=== PATIENT | female | born 1970 | race Hispanic/Latino ===

== ENCOUNTER 2017-01-30 08:06 | Outpatient (CLI) | payer BC ==
--- NOTE | 2017-01-30 16:09 | Mammography Report ---
BILATERAL DIGITAL DIAGNOSTIC MAMMOGRAM with CAD: 01/30/17 08:06:00 CLINICAL: History of a left palpable breast lump which has been followed. Status post left benign breast biopsy. COMPARISON:[facility] 08/12/15 and [facility] 04/01/13 mammograms FINDINGS: The breasts are mostly fatty with a few bilateral scattered fibroglandular densities. No mammographic finding at an upper outer palpable marker. Normal fat underlies the marker and the marker was also on the comparison 2016 mammogram. A left outer biopsy clip correlates with a previously identified circumscribed mass which is much smaller than on the [facility] 2013 mammogram.No new mass, architectural distortion or suspicious calcifications. IMPRESSION: No mammographic evidence of malignancy. BI-RADS CATEGORY: 2 - - Benign RECOMMENDATION: Routine mammographic screening in one year. ACR BI-RADS MAMMOGRAPHIC CODES: 0 = Needs additional imaging evaluation; 1 = Negative; 2 = Benign; 3 = Probably benign; 4 = Suspicious; 5 = Malignant; 6 = Known biopsy-proven malignancy COMMENT: 1. Dense breast tissue, i.e., adenosis, fibrocystic changes, etc., may obscure an underlying neoplasm. 2. Approximately 10% of cancers are not detected with mammography. 3. A negative mammography report should not delay biopsy if a clinically suspicious mass is present. COMMENT: Patient follow-up letters are generated by our [employer] application.
== END 2017-01-30 08:07 | disposition home or self-care (01) ==
LOC: SPVWC 08:06
PROVIDERS: ATTEND Family Medicine
DX: R92.8 Other abnormal and inconclusive findings on diagnostic imaging of breast (principal)
CPT/HCPCS: 77066; G0204

== ENCOUNTER 2017-08-29 08:46 | Outpatient (CLI) | payer BC ==
--- NOTE | 2017-08-29 14:38 | Cat Scan Report ---
CT CERVICAL SPINE WITHOUT CONTRAST:08/29/17 08:46:00 CLINICAL: Cervical radiculopathy. TECHNIQUE: Volumetric acquisition and 1.25-mm axial scan reconstructions without contrast. Sagittal and coronal reformats were performed. FINDINGS: Mild dextroscoliosis centered at C5-6. Normal vertebral body height, alignment and disk spaces. No fracture or subluxation. Normal soft tissues and airway. C2-3: Intact. C3-4: Intact. C4-5: Intact. C5-6: Intact disc. A small left foraminal osteophyte producing mild left neural foraminal narrowing. C6-7: Intact. C7-T1: Intact. IMPRESSION: Dextroscoliosis centered at C5-6 and mild C5-6 degenerative disc disease. A small left C5-6 osteophyte produces mild narrowing of the left neural foramen. The rest of exam is normal.
== END 2017-08-29 08:47 | disposition home or self-care (01) ==
LOC: SPVIMAG 08:46
PROVIDERS: ATTEND Physical Medicine & Rehabilitation
DX: M48.02 Spinal stenosis, cervical region (principal); M41.82 Other forms of scoliosis, cervical region; M50.322 Other cervical disc degeneration at C5-C6 level; M54.12 Radiculopathy, cervical region
CPT/HCPCS: 72125

== ENCOUNTER 2018-02-19 09:29 | Outpatient (CLI) | payer BC ==
--- NOTE | 2018-02-19 14:59 | Mammography Report ---
BILATERAL DIGITAL SCREENING MAMMOGRAM with CAD: 02/19/18 09:29:00 CLINICAL: Routine screening.History of a left benign biopsy. 01/30/17 COMPARISON:01/30/17 and 04/01/13 FINDINGS: There are scattered areas of fibroglandular density.Left outer biopsy clip with a stable partially circumscribed mass adjacent to the clip. No new mass, architectural distortion or suspicious calcifications. IMPRESSION: No mammographic evidence of malignancy. BI-RADS CATEGORY: 2 -- Benign RECOMMENDATION: Routine mammographic screening in one year. COMMENT: Patient follow-up letters are generated by our [employer] application.
== END 2018-02-19 09:30 | disposition home or self-care (01) ==
LOC: SPVWC 09:29
PROVIDERS: ATTEND Family Medicine
DX: Z12.31 Encounter for screening mammogram for malignant neoplasm of breast (principal); K21.9 Gastro-esophageal reflux disease without esophagitis; Z90.49 Acquired absence of other specified parts of digestive tract; Z90.710 Acquired absence of both cervix and uterus
CPT/HCPCS: 77067

== ENCOUNTER 2018-09-10 13:52 | Outpatient (CLI) | payer BC ==
--- NOTE | 2018-09-10 14:28 | XRay Report ---
XRAY LUMBAR SPINE THREE VIEWS: 09/10/18 13:52:00 CLINICAL: Radiculopathy. FINDINGS: Mild levoscoliosis at L4-5. Normal vertebral body height, alignment and disc spaces. Lower lumbar facet joint sclerosis. The pedicles are intact. No fracture. Normal soft tissues. IMPRESSION: Lumbar scoliosis and mild to moderate lower lumbar facet joint arthropathy.
== END 2018-09-10 13:53 | disposition home or self-care (01) ==
LOC: SPVIMAG 13:52
PROVIDERS: ATTEND Anesthesiology
DX: M41.86 Other forms of scoliosis, lumbar region (principal); K21.9 Gastro-esophageal reflux disease without esophagitis; Z90.710 Acquired absence of both cervix and uterus
CPT/HCPCS: 72100

== ENCOUNTER 2019-01-19 14:13 | Outpatient (CLI) | payer BC ==
[2019-01-19 14:32] LABS: Basophils % (Auto) 0.3 % (0.0-1.8); Eosinophils # (Auto) 0.2 K/mm3 (0.0-0.4); Eosinophils % (Auto) 1.4 % (0.0-4.3); Hematocrit 45.6 % (30.3-42.9); Hemoglobin 15.5 gm/dl (10.1-14.3); Lymphocytes # (Auto) 4.1 K/mm3 (1.2-5.4); Lymphocytes % (Auto) 38.7 % (13.4-35.0); Mean Corpuscular HGB Conc 34 % (30-34); Mean Corpuscular Volume 90 fl (79-97); Monocytes # (Auto) 0.7 K/mm3 (0.0-0.8); Monocytes % (Auto) 6.2 % (0.0-7.3); Platelet Count 254 K/mm3 (140-440); Red Blood Count 5.07 M/mm3 (3.65-5.03); Red Cell Distribution Width 12.9 % (13.2-15.2)
[2019-01-19 14:49] LABS: Bilirubin,Urine NEG (Negative); Blood,Urine SM (Negative); Color,Urine Straw (Yellow); Mucus,Urine FEW /HPF; Protein,Urine <15 mg/dL mg/dL (Negative); Urobilinogen,Urine < 2.0 mg/dL (<2.0)
[2019-01-19 15:19] LABS: Alanine Aminotransferase 28 units/L (7-56); Albumin 4.3 g/dL (3.9-5); BUN/Creatinine Ratio 20; Blood Urea Nitrogen 14 mg/dL (7-17); Calcium 10.3 mg/dL (8.4-10.2); Hemolysis Index 7
== END 2019-01-19 14:14 | disposition home or self-care (01) ==
LOC: LAB 14:13
PROVIDERS: ATTEND Family Medicine
DX: R53.83 Other fatigue (principal); R10.30 Lower abdominal pain, unspecified; R61 Generalized hyperhidrosis; K21.9 Gastro-esophageal reflux disease without esophagitis; Z90.710 Acquired absence of both cervix and uterus
CPT/HCPCS: 36415; 80053; 81001; 84443; 85025; 87086

== ENCOUNTER 2019-02-23 09:46 | Outpatient (CLI) | payer BC ==
--- NOTE | 2019-02-23 15:18 | Mammography Report ---
DIGITAL SCREENING MAMMOGRAM WITH CAD, 02/23/2019 INDICATION: Routine screening mammography. TECHNIQUE: Digital bilateral 2D mammography was obtained in the craniocaudal and mediolateral obliq ue projections. This examination was interpreted with the benefit of Computer-Aided Detection analysi s. COMPARISON: 02/19/2018 FINDINGS: Breast Density: There are scattered areas of fibroglandular density. There is no evidence of dominant mass, suspicious calcifications or architectural distortion in eithe r breast. A left outer biopsy clip. IMPRESSION: No mammographic evidence of malignancy. Follow up recommendation: Routine yearly BI-RADS Category 1: Negative. A "normal" or negative report should not discourage follow up or biopsy of a clinically significant f inding. A written summary of these findings will be mailed to the patient. The patient will be entered into a mammography reporting system which will generate a reminder letter for the patient's next appointmen t at the appropriate interval. The [employer] recommends yearly mammograms starting at age 40 and continuing as l radha as a woman is in good health. Breast MRI is recommended for women with an approximate 20-25% or greater lifetime risk of breast cancer, including women with a strong family history of breast or ova charli cancer or who have been treated for Hodgkin's disease. Signer Name: Naman Dumont MD Signed: 02/23/2019 3:14 PM Workstation Name: [id number]
== END 2019-02-23 09:47 | disposition home or self-care (01) ==
LOC: SPVWC 09:46
PROVIDERS: ATTEND Family Medicine
DX: Z12.31 Encounter for screening mammogram for malignant neoplasm of breast (principal)
CPT/HCPCS: 77067

== ENCOUNTER 2019-03-24 11:35 | Outpatient (CLI) | payer BC ==
[2019-03-24 12:01] LABS: Hematocrit 43.6 % (30.3-42.9); Hemoglobin 14.7 gm/dl (10.1-14.3); Mean Corpuscular HGB Conc 34 % (30-34); Mean Corpuscular Volume 88 fl (79-97); Platelet Count 235 K/mm3 (140-440); Red Blood Count 4.96 M/mm3 (3.65-5.03); Red Cell Distribution Width 13.2 % (13.2-15.2)
[2019-03-24 12:28] LABS: Alanine Aminotransferase 26 units/L (7-56); Albumin 4.5 g/dL (3.9-5); BUN/Creatinine Ratio 30; Blood Urea Nitrogen 21 mg/dL (7-17); Calcium 9.8 mg/dL (8.4-10.2); Hemolysis Index 55
== END 2019-03-24 11:36 | disposition home or self-care (01) ==
LOC: LAB 11:35
PROVIDERS: ATTEND Internal Medicine Hematology & Oncology
DX: D75.1 Secondary polycythemia (principal)
CPT/HCPCS: 36415; 80053; 82668; 85027

== ENCOUNTER 2019-04-08 06:03 | Day surgery (SDC) | payer BC ==
[2019-04-08] MEDS ORDERED: SODIUM CHLORIDE 0.9% 1000 ML 1,000 ML IV SCH (07:00)
--- NOTE | 2019-04-08 07:34 | Anesthesia Consultation ---
Anesthesia Consult and Med Hx Date of service: 04/08/19 - Airway Anesthetic Teeth Evaluation: Good ROM Head & Neck: Adequate Mental/Hyoid Distance: Adequate Mallampati Class: Class I Intubation Access Assessment: Good - Pulmonary Exam CTA: Yes - Cardiac Exam Cardiac Exam: RRR - Pre-Operative Health Status ASA Pre-Surgery Classification: ASA2 Proposed Anesthetic Plan: MAC - Pulmonary Hx Smoking: No Hx Asthma: No Hx Sleep Apnea: No - Cardiovascular System Hx Hypertension: No Hx Cardia Arrhythmia: No Hx Heart Murmur: No - Central Nervous System Hx Neuromuscular Disorder: Yes (Muscle Spasms- Neck) Hx Seizures: No Hx Psychiatric Problems: Yes (Anxiety) - Gastrointestinal Hx Gastroesophageal Reflux Disease: Yes (occassional, mild) - Endocrine Hx Renal Disease: No Hx Non-Insulin Dependent Diabetes: No Hx Thyroid Disease: No - Hematic Hx Anemia: No - Other Systems Hx Alcohol Use: No Hx Cancer: No - Additional Comments Anesthesia Medical History Comments: Patient denied previous anesthesia related complications.
--- NOTE | 2019-04-08 07:35 | Anesthesia Day of Surgery ---
Anesthesia Day of Surgery - Day of Surgery Patient Examined: Yes Patient H&P Reviewed: Yes Patient is NPO: Yes
[2019-04-08] MEDS ORDERED: PROPOFOL 200 MG/20 ML VIAL IV ONE (07:46)
[2019-04-08] MEDS ORDERED: fentaNYL 100 MCG/2 ML INJ ONE (07:46)
[2019-04-08] MEDS ORDERED: ONDANSETRON 4 MG/2 ML INJ ONE ×2 (07:47→08:00)
[2019-04-08] MEDS ORDERED: LIDOCAINE (2%) 20 MG/1 ML VIAL 20 ML MDV INFILTRATI ONE (07:47)
[2019-04-08] MEDS ORDERED: WATER FOR IRRIG STERILE 250 ML BOTTLE IR ONE (07:58)
[2019-04-08] MEDS ORDERED: WATER FOR IRRIG STERILE 1,000 ML BOTTLE ONE (07:58)
[2019-04-08] MEDS ORDERED: LIDOCAINE MPF (2%) 20 MG/1 ML VIAL 5 ML ONE (08:00)
--- NOTE | 2019-04-08 08:07 | Short Stay Summary ---
Short Stay Documentation Date of service: 04/08/19 Narrative H&P: Patient is a 49 yo wf who presents for endoscopy due to dyspepsia/epigastric abd pain. + n/v; symptoms worse with meals. - History H&P: obtained from office Past Medical History: other (see office note; no changes) Past Surgical History: bowel surgery, Other Social history: no significant social history - Allergies and Medications Current Medications: Allergies adhesive Adverse Reaction (Verified 03/23/13 12:41) Itching Sulfa (Sulfonamide Antibiotics) Adverse Reaction (Verified 03/13/13 15:27) Swelling Home Medications Medication Instructions Recorded Confirmed Last Taken Type Biotin [Biotin 5mg] 3 tab PO QDAY 03/16/13 06/14/14 06/13/14 History Calcium Carbonate [Oscal 1250MG 1,250 mg PO QDAY 03/16/13 06/14/14 06/13/14 History TAB] Cyanocobalamin [Vitamin B-12] 1,500 mcg PO DAILY 03/16/13 06/14/14 06/13/14 History Multivit,Min/Folic Acid/Nav151 1 cap PO QDAY 03/16/13 06/14/14 06/13/14 History [Estroven Max Strength Caplet] HYDROcodone/APAP 5-325 [[place] 1 each PO Q4H #40 03/23/13 06/14/14 04/07/19 Rx 5-325 mg TAB] Gabapentin 300 mg PO TID 06/14/14 06/14/14 06/13/14 History Meloxicam 15 mg PO BID 06/14/14 06/14/14 06/13/14 History Tramadol HCl [traMADol] 50 mg PO BID 06/14/14 06/14/14 06/13/14 17:00 History Acetaminophen/Codeine [Tylenol 1 tab PO Q6H PRN #14 tab 03/26/18 Unknown Rx /Codeine # 3 tab] Ibuprofen [Motrin] 600 mg PO Q8H PRN #20 tablet 03/26/18 Unknown Rx Ondansetron [Zofran Odt] 4 mg PO Q8HR PRN #20 tab.rapdis 03/26/18 Unknown Rx Dicyclomine 50 mg PO BID 04/08/19 04/08/19 04/07/19 History 50 MG FLUoxetine HCL [FLUoxetine] 20 mg PO DAILY 04/08/19 04/08/19 04/07/19 History Active Medications Sodium Chloride (Nacl 0.9% 1000 Ml) 1,000 mls @ 50 mls/hr IV DIRECT UVALDO - Physical exam General appearance: no acute distress Heart: Regular rate Gastrointestinal: normal - Brief post op/procedure progress note Date of procedure: 04/08/19 Pre-op diagnosis: abdominal pain, nausea/vomiting Post-op diagnosis: other (retained food in stomach and duodenum) Procedure: EGD Anesthesia: MAC Findings: There was a large amount of retained solid food in the body of the stomach, antrum and visualized portion of the duodenum which prevented visualization. No obvious gastric outlet obstruction Surgeon: HERMILO DE DIOS Estimated blood loss: none Pathology: none Condition: stable - Disposition Condition at discharge: Good Disposition: DC-01 TO HOME OR SELFCARE Short Stay Discharge Plan Follow up with: ANURAG SULLIVAN MD [Primary Care Provider] - 7 Days
--- NOTE | 2019-04-08 08:13 | Operative Report ---
Operative Report Operative Report: Esophagogastroduodenoscopy Procedure Note Date of procedure: 04/08/2019 Endoscopist: Jose Khan Pre-op diagnosis: Abdominal pain, nausea/vomiting Post-op diagnosis: Large amount of retained food in the stomach and duodenum Anesthesia: MAC Complications: No immediate complications Estimated blood loss: None Procedure: After consent was obtained, the patient was placed in the left lateral decubitus position. The olympus endoscope was inserted into the patient's mouth under direct vision, and advanced into the 2nd portion of the duodenum without difficulty. The patient tolerated the procedure well. The views of the mucosa were poor (due to retained food) Patient's vital signs were monitored continuously throughout the procedure. Findings: The esophagus appeared normal. There was a large amount of retained solid food in the gastric body and in the antrum preventing visualization. There was retained food in the visualized portion of the duodenum. No obvious signs of gastric outlet obstruction. Impression: 1. Large amount of retained solid food in the stomach, antrum, and duodenum suggestive of gastroparesis. No obvious signs of gastric outlet obstruction. Recommendations: -follow-up in GI clinic as previously scheduled -obtain gastric emptying study -consider repeat EGD with 1-2 days of liquids prior to exam to rule out other underlying abnormalities
[2019-04-08 09:23] VITALS: BP 113/70
--- NOTE | 2019-04-09 07:58 | Post Anesthesia Evaluation ---
- Post Anesthesia Evaluation Patient Participated: Yes Airway Patent: Yes Stable Respiratory Function: Yes Nausea/Vomiting: No Temp > 96.8F: Yes Pain Manageable: Yes Adequeate Hydration: Yes Anesthesia Complications: No Block Receding Appropriately: Not Applicable Patient on Ventilator: No
== END 2019-04-08 06:04 | disposition home or self-care (01) ==
LOC: GIO 06:03
PROVIDERS: ATTEND Internal Medicine Gastroenterology
DX: R10.13 Epigastric pain (principal); R11.2 Nausea with vomiting, unspecified; K31.89 Other diseases of stomach and duodenum; K21.9 Gastro-esophageal reflux disease without esophagitis; Z90.49 Acquired absence of other specified parts of digestive tract; Z79.899 Other long term (current) drug therapy; Z88.2 Allergy status to sulfonamides; Z90.710 Acquired absence of both cervix and uterus; Z87.442 Personal history of urinary calculi; Z87.440 Personal history of urinary (tract) infections; Z98.890 Other specified postprocedural states
CPT/HCPCS: 43235; J2405; J2704; J3010; J7030

== ENCOUNTER 2019-04-27 07:27 | Outpatient (CLI) | payer BC ==
--- NOTE | 2019-04-29 13:55 | Nuclear Medicine Report ---
NUCLEAR MEDICINE GASTRIC EMPTYING SCAN HISTORY: Abdominal pain TECHNIQUE: Anterior abdominal imaging was performed for 90 minutes following 1 mCi of technetium 99m sulfur colloid in oatmeal. Time activity curves were constructed. FINDINGS: Half-life for gastric emptying measures 73 minutes. No scintigraphic evidence for reflux disease. IMPRESSION: Normal gastric emptying. Signer Name: Felix Rocha Jr, MD Signed: 04/29/2019 1:50 PM Workstation Name: [id number]
== END 2019-04-27 07:28 | disposition home or self-care (01) ==
LOC: NM 07:27
PROVIDERS: ATTEND Nurse Practitioner
DX: R10.84 Generalized abdominal pain (principal); K58.1 Irritable bowel syndrome with constipation; R11.2 Nausea with vomiting, unspecified
CPT/HCPCS: 78264; A9541

== ENCOUNTER 2019-07-06 08:06 | Day surgery (SDC) | payer BC ==
[~2019-07-06 08:06] MED LIST: SODIUM CHLORIDE 0.9% 1000 ML 1,000 ML IV SCH
[2019-07-06] MEDS ORDERED: LIDOCAINE MPF (2%) 20 MG/1 ML VIAL 5 ML ONE (09:00)
[2019-07-06] MEDS ORDERED: WATER FOR IRRIG STERILE 250 ML BOTTLE IR ONE (09:02)
--- NOTE | 2019-07-06 09:04 | Anesthesia Day of Surgery ---
Anesthesia Day of Surgery - Day of Surgery Patient Examined: Yes Patient H&P Reviewed: Yes Patient is NPO: Yes
--- NOTE | 2019-07-06 09:06 | Anesthesia Consultation ---
Anesthesia Consult and Med Hx Date of service: 07/06/19 - Airway Anesthetic Teeth Evaluation: Good ROM Head & Neck: Adequate Mental/Hyoid Distance: Adequate Mallampati Class: Class I Intubation Access Assessment: Good - Pulmonary Exam CTA: Yes - Cardiac Exam Cardiac Exam: RRR - Pulmonary Hx Smoking: No Hx Asthma: No Hx Sleep Apnea: No - Cardiovascular System Hx Hypertension: No Hx Cardia Arrhythmia: No Hx Heart Murmur: No - Central Nervous System Hx Neuromuscular Disorder: Yes (Muscle Spasms- Neck) Hx Seizures: No Hx Psychiatric Problems: Yes (Anxiety) - Gastrointestinal Hx Ulcer: No (Epigastric / Abd pain) Hx Gastroesophageal Reflux Disease: Yes (occassional, mild) - Endocrine Hx Renal Disease: No Hx Non-Insulin Dependent Diabetes: No Hx Thyroid Disease: No - Hematic Hx Anemia: No - Other Systems Hx Alcohol Use: No Hx Cancer: No
[2019-07-06] MEDS ORDERED: propofoL 200 MG/20 ML VIAL IV ONE (09:29)
--- NOTE | 2019-07-06 09:51 | Short Stay Summary ---
Short Stay Documentation Date of service: 07/06/19 Narrative H&P: Patient is a 49 yo wf with h/o chronic abdominal pain and episodes of n/v; prior EGD showed retained food in the stomach and aborted due to aspiration risks. Symptoms overall stable. weight stable. she has been on clears last 1-2 days. - History H&P: obtained from office Past Medical History: other (no changes from clinic note) Past Surgical History: Other (no changes) Social history: other (no changes) - Allergies and Medications Current Medications: Allergies latex Allergy (Intermediate, Verified 07/03/19 11:09) Unknown adhesive Adverse Reaction (Verified 03/23/13 12:41) Itching Sulfa (Sulfonamide Antibiotics) Adverse Reaction (Verified 03/13/13 15:27) Swelling Home Medications Medication Instructions Recorded Confirmed Last Taken Type FLUoxetine HCL [FLUoxetine] 20 mg PO DAILY 04/08/19 07/06/19 07/05/19 17:00 History Active Medications Sodium Chloride (Nacl 0.9% 1000 Ml) 1,000 mls @ 50 mls/hr IV DIRECT UVALDO Last Admin: 07/06/19 09:36 Dose: 50 mls/hr Documented by: - Physical exam General appearance: no acute distress Lungs: Clear to auscultation Heart: Regular rate, Normal S1, Normal S2 Gastrointestinal: normal - Brief post op/procedure progress note Date of procedure: 07/06/19 Pre-op diagnosis: abdominal pain, nausea/vomiting Post-op diagnosis: other (Mild gastritis and duodenitis) Procedure: EGD with biopsies Anesthesia: MAC Findings: Mild erythematous mucosa in the antrum. Biopsied. Mild erythematous mucosa in duodenal bulb. No gastric outlet obstruction or other significant findings. Surgeon: HERMILO DE DIOS Estimated blood loss: minimal Pathology: list (Gastric biopsies) Specimen disposition: to lab Condition: stable - Disposition Condition at discharge: Good Disposition: DC-01 TO HOME OR SELFCARE Short Stay Discharge Plan Follow up with: ANURAG SULLIVAN MD [Primary Care Provider] - 7 Days
--- NOTE | 2019-07-06 09:54 | Operative Report ---
Operative Report Operative Report: Esophagogastroduodenoscopy Procedure Note with biopsies Date of procedure: 07/06/2019 Endoscopist: Jose Khan Pre-op diagnosis/indication: Abdominal pain, nausea/vomiting Post-op diagnosis: Mild gastritis and duodenitis MEDICATIONS: MAC COMPLICATIONS: No immediate complications ESTIMATED BLOOD LOSS: Minimal DESCRIPTION OF PROCEDURE: After consent was obtained, the patient was placed in the left lateral decubitis position. The olympus endoscope was inserted into the patient's mouth under direct vision and advanced to the 2nd portion of the duodenum without difficulty. The patient tolerated the procedure well. The views of the mucosa were good. The patient's vital signs were monitored continuously throughout the procedure. FINDINGS: The esophagus appeared normal. There was mild erythematous mucosa in the antrum of the stomach. Biopsies were obtained to rule out h pylori. Otherwise, the stomach appeared normal without signs of peptic ulcer disease or gastric outlet obstruction. Mild erythematous mucosa in the duodenal bulb, otherwise the duodenum appeared normal. IMPRESSION: 1. Mild erythematous gastric mucosa. Biopsied. 2. Mild erythematous mucosa in the duodenal bulb. No signs of peptic ulcer disease or gastric outlet obstruction. RECOMMENDATIONS: -follow up pathology -continue current medications -follow-up in GI clinic as previously scheduled
[2019-07-06 10:20] VITALS: BP 111/61
== END 2019-07-06 08:07 | disposition home or self-care (01) ==
LOC: GIO 08:06
PROVIDERS: ATTEND Internal Medicine Gastroenterology
DX: R10.9 Unspecified abdominal pain (principal); R11.2 Nausea with vomiting, unspecified; R68.81 Early satiety; F41.9 Anxiety disorder, unspecified; K29.80 Duodenitis without bleeding; K21.9 Gastro-esophageal reflux disease without esophagitis; K31.89 Other diseases of stomach and duodenum; Z91.040 Latex allergy status; Z88.2 Allergy status to sulfonamides; Z88.8 Allergy status to other drugs, medicaments and biological substances; Z79.899 Other long term (current) drug therapy; Z90.49 Acquired absence of other specified parts of digestive tract; Z98.890 Other specified postprocedural states; Z90.710 Acquired absence of both cervix and uterus
CPT/HCPCS: 43239; 88305; 88342; J2704; J7030

== ENCOUNTER 2019-07-24 10:02 | Outpatient (CLI) | payer BC ==
[2019-07-24 11:10] LABS: Blood Urea Nitrogen 22 mg/dL (7-17)
--- NOTE | 2019-07-24 12:19 | Cat Scan Report ---
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 COMPARISON: None available. FINDINGS: CT images of the cervical spine were obtained. Images are evaluated in the axial, coronal, and sagitt al planes. There is no evidence of acute abnormality. Reversal of cervical lordosis is centered at the C4-5 level with the patient positioned for this exam . Vertebral body alignment is otherwise unremarkable. There is no evidence of osseous canal or foraminal narrowing or impingement. There is no CT evidence of disc herniation or canal stenosis. CRANIOCERVICAL JUNCTION: Unremarkable. PARASPINAL STRUCTURES: Unremarkable IMPRESSION: No acute or significant abnormality. Subtle abnormalities of the spinal canal, spinal cord, neural foramina may require CT myelography or MRI for full evaluation. All CT scans at this location are performed using dose reduction to ALARA by means of automated expos ure control. Signer Name: Kavon Marks MD Signed: 07/24/2019 12:14 PM Workstation Name: [id number]
== END 2019-07-24 10:03 | disposition home or self-care (01) ==
LOC: CT 10:02
PROVIDERS: ATTEND Anesthesiology
DX: M47.812 Spondylosis without myelopathy or radiculopathy, cervical region (principal)
CPT/HCPCS: 36415; 72125; 82565; 84520